=== PATIENT | male | born 1995 | race Caucasian/White ===

== ENCOUNTER → 2016-05-28 | Outpatient (REF) ==
[~2016-05-28] MED LIST: AC500T PO; CLIN300C3 PO; IBP800T PO; WARF5TAB PO; WARF7.5T PO; [UNRECOGNIZED DRUG - CODE] MM
== END ==
LOC: CLAB.HERRA 14:16
PROVIDERS: ATTEND Family Medicine
DX: F19.21 Other psychoactive substance dependence, in remission (principal)

== ENCOUNTER 2016-07-31 01:12 | Emergency (ER) | payer SELFPAY ==
[~2016-07-31] VITALS: Ht 193 cm; Wt 91.0 kg
[2016-07-31 01:32] VITALS: BP 116/86
--- NOTE | 2016-07-31 01:43 | NUR ---
Dr. Rosa in examing pt.
[2016-07-31] MEDS ORDERED: KETOROLAC 60 MG/2 ML (TORADOL) VIAL IM ONE (01:45)
[2016-07-31] MEDS ORDERED: CEPHALEXIN 500 MG (KEFLEX) CAPSULE PO ONE (01:45)
--- NOTE | 2016-07-31 01:51 | NUR ---
Pt left AMA. Refused all medications and prescription for U/S of left arm to R/O dvt.
== END 2016-07-31 01:51 | disposition left against medical advice (07) ==
LOC: ED 01:14
DX: L98.9 Disorder of the skin and subcutaneous tissue, unspecified (principal)
CPT/HCPCS: 99281; 99282

== ENCOUNTER → 2016-09-10 | Outpatient (CLI) | payer SELFPAY | LOC: EMS 17:12 | DX: Z53.20 Procedure and treatment not carried out because of patient's decision for unspecified reasons (principal) ==

== ENCOUNTER 2016-09-23 22:52 | Emergency (ER) | payer SELFPAY ==
[~2016-09-23] VITALS: Ht 193 cm; Wt 90.9 kg
--- OUTSIDE RECORDS SUMMARY | 2016-09-23 22:57 | XMS REPORT | Continuity of Care Document ---
Author Author Floresita Canas Address Unknown Phone Unavailable Care Team Providers Care Reconciliation Clerk Name Role Phone [employer] Unavailable Unavailable Problems Problem Status Onset Date Classification Date Reported Comments Source Discharge from penis (finding) 07/08/2016 Diagnosis 07/12 [facility] No data available for this section Problem 07/18/2015 [facility] Medications Medication Details Route Status Patient Instructions Ordering Provider Order Date Source No Known Medications No known medications Active [facility] Allergies, Adverse Reactions, Alerts Immunizations Immunization Date Given Site Status Last Updated Comments Source No data available for this section No data available for this section [facility], [facility] Results Vital Signs Encounters Location Location Details Encounter Type Encounter Number Reason For Visit Attending Provider ADM Date DC Date Status Source [facility] [id number] Outpatient [id number] Physician Non-Staff 07/14/2015 07/14/2015 Active [facility] [id number] Diogo Garcia 07/08/2016 07/09/2016 [facility] Procedures Procedure Code Date Perfomer Comments Source Circumcision, surgical excision other than clamp, device, or dorsal slit; (28 days of age or less) [id number] 1993 [facility] No data available for this section [facility] Plan of Care Social History Assessment and Plan Family History Value Date Source Advance Directives Order Name Results Value Date Source
[2016-09-23 23:03] VITALS: BP 137/84
[2016-09-23] MEDS ORDERED: CEPH500T PO (23:18)
[2016-09-23] MEDS: LIDOCAINE PF 1% (XYLOCAINE) 2 ML VIAL INJ ONE (23:26)
[2016-09-23] MEDS: cefTRIAXone 1 GM (ROCEPHIN) VIAL IM ONE (23:26)
== END 2016-09-23 23:43 | disposition home or self-care (01) ==
LOC: ED 22:54
DX: I80.8 Phlebitis and thrombophlebitis of other sites (principal); M79.631 Pain in right forearm
CPT/HCPCS: 96372; 99282; J0696; J2001; 99283

== ENCOUNTER 2016-09-25 00:03 | Emergency (ER) | payer SELFPAY ==
[~2016-09-25] VITALS: Ht 193 cm; Wt 86.8 kg
[~2016-09-25 00:03] MED LIST changes: +CEPH500T PO
--- OUTSIDE RECORDS SUMMARY | 2016-09-25 00:09 | XMS REPORT | Continuity of Care Document ---
Author Author Floresita Canas Address Unknown Phone Unavailable Care Team Providers Care Head Of Commission Department Name Role Phone [employer] Unavailable Unavailable Problems Problem Status Onset Date Classification Date Reported Comments Source Discharge from penis (finding) 07/08/2016 Diagnosis 07/12 Replaced By [facility] No data available for this section Problem 07/18/2015 [facility] Medications Medication Details Route Status Patient Instructions Ordering Provider Order Date Source No Known Medications No known medications Active Replaced By [facility] Allergies, Adverse Reactions, Alerts Immunizations Immunization Date Given Site Status Last Updated Comments Source No data available for this section No data available for this section Replaced By [facility], [facility] Results Vital Signs Encounters Location Location Details Encounter Type Encounter Number Reason For Visit Attending Provider ADM Date DC Date Status Source [facility] [id number] Outpatient [id number] Physician Non-Staff 07/14/2015 07/14/2015 Active [facility] [id number] Diogo Garcia 07/08/2016 07/09/2016 Replaced By [facility] Procedures Procedure Code Date Perfomer Comments Source Circumcision, surgical excision other than clamp, device, or dorsal slit; (28 days of age or less) [id number] 1993 Replaced By [facility] No data available for this section [facility] Plan of Care Social History Assessment and Plan Family History Value Date Source Advance Directives Order Name Results Value Date Source
--- OUTSIDE RECORDS SUMMARY | 2016-09-25 00:09 | XMS REPORT | Continuity of Care Document ---
Author Author Floresita Canas Address Unknown Phone Unavailable Care Team Providers Care Adjunct Writing Instructor Name Role Phone [employer] Unavailable Unavailable Problems Problem Status Onset Date Classification Date Reported Comments Source Discharge from penis (finding) 07/08/2016 Diagnosis 07/12 [facility] No data available for this section Problem 07/18/2015 [facility] Medications Medication Details Route Status Patient Instructions Ordering Provider Order Date Source No Known Medications No known medications Active [facility] Allergies, Adverse Reactions, Alerts Immunizations Immunization Date Given Site Status Last Updated Comments Source No data available for this section No data available for this section [facility], [facility] Results Vital Signs Encounters Location Location Details Encounter Type Encounter Number Reason For Visit Attending Provider ADM Date DC Date Status Source [facility] [id number] Outpatient [id number] Physician Non-Staff 07/14/2015 07/14/2015 Active [facility] [id number] Diogo Garcia 07/08/2016 07/09/2016 [facility] Procedures Procedure Code Date Perfomer Comments Source Circumcision, surgical excision other than clamp, device, or dorsal slit; (28 days of age or less) [id number] 1995 [facility] No data available for this section [facility] Plan of Care Social History Assessment and Plan Family History Value Date Source Advance Directives Order Name Results Value Date Source
--- NOTE | 2016-09-25 00:15 | NUR ---
Pt admitted to ER room 7 with c/o right arm pain. Reports being in ER last night and receiving antibiotics and a shot. Explained that infections generally don't clear up in one day. Pt stated his understanding. Rates his pain at 10/10.
[2016-09-25] MEDS ORDERED: ED- HYDROcodone/ACETAMINOPHEN 5MG/325MG (NORCO) 6 TABLETS/BTL PO ONE (00:25)
[2016-09-25] MEDS ORDERED: cefTRIAXone 1 GM (ROCEPHIN) VIAL IM ONE (00:25)
[2016-09-25] MEDS ORDERED: LIDOCAINE PF 1% (XYLOCAINE) 2 ML VIAL INJ ONE (00:30)
--- NOTE | 2016-09-25 00:44 | NUR ---
Pt dismissed to home with instructions and prepack. Pt given IM injection of Rocephin. Pt stated that last night when he got the shot, it made his arm hurt worse. I explained the shot would not be given in his arm. Pt then stated the shot last night was given in his "butt", too. Pt unable to sit still, appeared to be tweaking. When asked if pt wanted to refuse the shot, pt stated no. Also instructed pt to take his antibiotics as prescribed the night before until course is finished. Pt stated he only had his 4th dose to take for today, then stated he didn't get his prescription from [facility] until after 6pm. Provided instructions and prepack with dosing instructions. Pt stated his understanding. Pt left ambulatory to [facility].
[2016-09-25 00:54] VITALS: BP 143/61
[2016-09-25] MEDS ORDERED: HYDR-3702 PO (13:48)
== END 2016-09-25 00:44 | disposition home or self-care (01) ==
LOC: ED 00:04
DX: L03.113 Cellulitis of right upper limb (principal); I80.8 Phlebitis and thrombophlebitis of other sites; F17.210 Nicotine dependence, cigarettes, uncomplicated; Z87.898 Personal history of other specified conditions
CPT/HCPCS: 96372; 99282; J0696; J2001

== ENCOUNTER 2016-09-25 13:28 | Emergency (ER) | payer SELFPAY ==
[~2016-09-25] VITALS: Ht 193 cm; Wt 84.6 kg
[2016-09-25] MEDS ORDERED: HYDR-3702 PO (13:48)
[2016-09-25 13:54] VITALS: BP 130/82
== END 2016-09-25 13:53 | disposition home or self-care (01) ==
LOC: ED 13:30
DX: L03.113 Cellulitis of right upper limb (principal); Z87.898 Personal history of other specified conditions; M79.631 Pain in right forearm; Z91.19 Patient's noncompliance with other medical treatment and regimen; F17.210 Nicotine dependence, cigarettes, uncomplicated
CPT/HCPCS: 99282; 99283